=== PATIENT | male | born 1990 | race Two or more races ===

== ENCOUNTER 2020-08-18 00:09 | Emergency (ER) | payer SELFPAY ==
[~2020-08-18] VITALS: Ht 175.3 cm; Wt 81.8 kg
[2020-08-18 00:15] VITALS: BP 168/88
[2020-08-18] MEDS ORDERED: ACETAMINOPHEN 325 MG TABLET. PO ONE (01:00)
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
== END 2020-08-18 00:50 | disposition home or self-care (01) ==
LOC: ER 00:09
DX: S40.012A Contusion of left shoulder, initial encounter (principal); S60.222A Contusion of left hand, initial encounter; S60.221A Contusion of right hand, initial encounter; F17.200 Nicotine dependence, unspecified, uncomplicated; F10.10 Alcohol abuse, uncomplicated; Y08.89XA Assault by other specified means, initial encounter; Y93.89 Activity, other specified; Y92.89 Other specified places as the place of occurrence of the external cause; Y99.8 Other external cause status
CPT/HCPCS: 99282